=== PATIENT | female | born 1970 | race American Indian/Alaskan Native ===

== ENCOUNTER 2021-04-03 15:29 | Emergency (ER) | payer BC ==
[~2021-04-03] VITALS: Ht 165.1 cm; Wt 98.4 kg
[2021-04-03] MEDS ORDERED: PAXIL40 MG PO (15:54)
[2021-04-03] MEDS ORDERED: LIPITOR20 MG (15:54)
[2021-04-03] MEDS ORDERED: OZEMPIC1 MG/0.75 SQ (15:54)
[2021-04-03] MEDS ORDERED: CHLORDIAZEPOXID25 MG PO (19:33)
[2021-04-03] MEDS ORDERED: ONDANSETRON ODT4 MG PO (19:33)
== END 2021-04-03 20:09 | disposition home or self-care (01) ==
LOC: ED 15:29
DX: F10.239 Alcohol dependence with withdrawal, unspecified (principal); E86.0 Dehydration; R11.2 Nausea with vomiting, unspecified; E11.9 Type 2 diabetes mellitus without complications; G47.30 Sleep apnea, unspecified; Z20.822 Contact with and (suspected) exposure to COVID-19; Z88.2 Allergy status to sulfonamides; Z79.899 Other long term (current) drug therapy
CPT/HCPCS: 80053; 81001; 85025; 96374; 96375; 99284-25; C9803; J2060; J2405; J7030; U0003